=== PATIENT | female | born 1945 ===

== ENCOUNTER 2021-05-28 08:15 | Day surgery (SDC) | payer OTHER ==
[~2021-05-28 08:15] MED LIST: ALENDRONATE SOD70 MG PO; TIROSINT88 MCG PO; VERELAN240 MG PO; VITAMIN D3 PO
== END 2021-05-28 20:30 | disposition home or self-care (01) ==
LOC: CIR.AMB 08:15
PROVIDERS: ATTEND Colon & Rectal Surgery
DX: K56.50 Intestinal adhesions [bands], unspecified as to partial versus complete obstruction (principal); K63.5 Polyp of colon; K92.1 Melena; I10 Essential (primary) hypertension; I25.10 Atherosclerotic heart disease of native coronary artery without angina pectoris; E03.9 Hypothyroidism, unspecified; M81.0 Age-related osteoporosis without current pathological fracture